=== PATIENT | female | born 1950 | race Caucasian/White ===

== ENCOUNTER 2023-11-30 16:54 | Emergency (ER) | payer MEDICARE, OTHER ==
[~2023-11-30] VITALS: Ht 144.8 cm; Wt 64.4 kg
[2023-11-30 17:25] VITALS: BP 122/81; TEMP 98.5; O2SAT 98
[2023-11-30] MEDS ORDERED: diphenhydrAMINE HCL 50 MG/ML VIAL ONE (18:32)
[2023-11-30] MEDS ORDERED: methylPREDNISolone SOD SUCC 125 MG/2ML VIAL ONE (18:32)
[2023-11-30] MEDS ORDERED: FAMOTIDINE/PF INJ 20 MG/2 ML VIAL IV ONE (18:33)
[2023-11-30] MEDS: diphenhydrAMINE HCL 50 MG/ML VIAL IV ONE (18:35)
[2023-11-30] MEDS: FAMOTIDINE/PF INJ 20 MG/2 ML VIAL IV ONE (18:39)
[2023-11-30] MEDS: methylPREDNISolone SOD SUCC 125 MG/2ML VIAL IV ONE (18:42)
[2023-11-30] MEDS ORDERED: TRIA80OI TP (20:02)
[2023-11-30] MEDS ORDERED: PRED20TA PO (20:02)
[2023-11-30] MEDS ORDERED: DIPH25CA49 MC (20:02)
[2023-11-30] MEDS ORDERED: FAMO20TA8 PO (20:02)
== END 2023-11-30 20:32 | disposition home or self-care (01) ==
LOC: ER 16:58
DX: L50.9 Urticaria, unspecified (principal); I10 Essential (primary) hypertension; Z85.3 Personal history of malignant neoplasm of breast; Z79.899 Other long term (current) drug therapy
CPT/HCPCS: 99284; 96374; 96375; J1200; J3490; J2930